=== PATIENT | male | born 1945 | race Caucasian/White ===

== ENCOUNTER 2018-11-27 11:04 | Day surgery (SDC) | payer MEDICARE, BC ==
[2018-11-27] MEDS ORDERED: LIDOCAINE 2% (SDV) 5 ML INJ (13:00)
[2018-11-27] MEDS ORDERED: PROPOFOL 200 MG INJ (13:00)
[2018-11-27] MEDS ORDERED: LIDOCAINE 2% JELLY 5 ML ×2 (13:22→14:06)
== END 2018-11-27 15:58 | disposition home or self-care (01) ==
LOC: GIL 11:04
DX: Z12.11 Encounter for screening for malignant neoplasm of colon (principal); K64.0 First degree hemorrhoids; K57.31 Diverticulosis of large intestine without perforation or abscess with bleeding; K29.00 Acute gastritis without bleeding; E78.5 Hyperlipidemia, unspecified; M19.90 Unspecified osteoarthritis, unspecified site
CPT/HCPCS: 43239; 88305; 88312